=== PATIENT | female | born 1940 | race Hispanic/Latino ===

== ENCOUNTER 2018-08-27 07:36 | Emergency (ER) | payer OTHER ==
[2018-08-27 07:36] VITALS: BMI 30.2
[2018-08-27 07:51] VITALS: O2SAT 99
--- NOTE | 2018-08-27 08:34 | ED PDOC ---
Arrival/HPI - History of Present Illness Narrative History of Present Illness (Text): 08/27/18 08:20 Pt is a 78 y F with pmhx of HTN, GERD, and glaucoma who presents for a fall sustained this AM due to uneven pavement. Pt reports that she was walking to [employer] when she tripped over some uneven pavement that she did not see. She states that she fell forward and hit her R hand and the R side of her face against the concrete, and states that there was no glass or other sharp objects on the floor where she fell. She denies feeling lightheaded or dizzy before the event and denies any LOC after the fall. She is currently complaining of R hand, and R shoulder pain and is also stating that she is having a headache. She states that the pain all rates about a 7/10 without radiation. She denies any numbness, tingling or weakness or being on any anti-coagulants. Pmhx: HTN, glaucoma, GERD Pshx: Cholecystectomy Meds: Norvasc, lopressor, cozaar, nexium All: Morphine - decreased HR Social: Denies any tobacco hx, etoh or illicit drug use Fam Hx: Mom- DM Time/Duration: 1 hour Symptom Onset: Sudden <Sung Lan - Last Filed: 08/27/18 10:59> <Brody Coker DO - Last Filed: 08/27/18 18:11> - General Chief Complaint: Trauma Time Seen by Provider: 08/27/18 07:55 Past Medical History - Provider Review Nursing Documentation Reviewed: Yes - Infectious Disease Hx of Infectious Diseases: None - Cardiac Hx Hypertension: Yes - Psychiatric Hx Depression: No Hx Emotional Abuse: No Hx Physical Abuse: No Hx Substance Use: No - Surgical History Hx Cholecystectomy: Yes - Anesthesia Hx Anesthesia: Yes Hx Anesthesia Reactions: No Hx Malignant Hyperthermia: No - Suicidal Assessment Feels Threatened In Home Enviroment: No <Sung Lan - Last Filed: 08/27/18 10:59> Family/Social History - Physician Review Nursing Documentation Reviewed: Yes Family/Social History: Diabetes Smoking Status: Never Smoked Hx Alcohol Use: No Hx Substance Use: No Hx Substance Use Treatment: No <Sung Lan - Last Filed: 08/27/18 10:59> Allergies/Home Meds <Sung Lan - Last Filed: 08/27/18 10:59> <Ummyasestrella DOBrody - Last Filed: 08/27/18 18:11> Allergies/Adverse Reactions: Allergies morphine Adverse Reaction (Verified 08/27/18 07:59) RASH Home Medications: Home Meds Medication Instructions Recorded Confirmed Amlodipine Besylate [Norvasc] 5 mg PO DAILY 03/06/14 08/27/18 Esomeprazole Magnesium [Nexium] 40 mg PO DAILY 03/06/14 08/27/18 Losartan [Cozaar] 50 mg PO DAILY 03/06/14 08/27/18 Metoprolol Tartrate [Lopressor] 50 mg PO DAILY 03/06/14 08/27/18 Review of Systems - Physician Review All systems were reviewed & negative as marked: Yes - Review of Systems Respiratory: absent: SOB, Cough, Wheezing Cardiovascular: absent: Chest Pain, Palpitations, Edema Musculoskeletal: Joint Swelling (R hand and R eyelid ) Skin: Laceration (R hand) <Sung Lan - Last Filed: 08/27/18 10:59> Physical Exam Vital Signs Reviewed: Yes Vital Signs Temp Pulse Resp BP Pulse Ox 08/27/18 07:39 98.2 F 78 18 164/76 H 99 Temperature: Afebrile Blood Pressure: Hypertensive (likely 2/2 pain) Pulse: Regular Respiratory Rate: Normal Appearance: Positive for: Well-Appearing, Non-Toxic, Uncomfortable Pain Distress: Mild Mental Status: Positive for: Alert and Oriented X 3 - Systems Exam Head: Present: Normocephalic, Swelling (R eye orbit and eyelid), Ecchymosis (R eye orbit and eyelid) Pupils: Present: PERRL Extroacular Muscles: Present: EOMI Mouth: Present: Moist Mucous Membranes Respiratory/Chest: Present: Clear to Auscultation, Good Air Exchange. No: Respiratory Distress, Accessory Muscle Use, Wheezes Cardiovascular: Present: Regular Rate and Rhythm, Normal S1, S2. No: Murmurs, Rub, Gallop Abdomen: Present: Normal Bowel Sounds. No: Tenderness, Distention, Peritoneal Signs, Rebound, Guarding Upper Extremity: Present: Swelling (of the MCP joint of R hand in digits 3,4 and 5. Abrasions present on the dorsal aspect of the MCP joints of the 3, 4 & 5 digits. Normal cap refill, with normal sensation, ROM limited due to pain and swelling), Neurovascularly Intact Lower Extremity: Present: Normal Inspection, Neurovascularly Intact. No: Edema, CALF TENDERNESS Neurological: Present: GCS=15, CN II-XII Intact, Speech Normal, Motor Func Grossly Intact, Normal Sensory Function Skin: Present: Warm, Dry, Normal Color. No: Rashes Psychiatric: Present: Alert, Oriented x 3, Normal Insight, Normal Concentration <uSng Lan - Last Filed: 08/27/18 10:59> Vital Signs Temp Pulse Resp BP Pulse Ox 08/27/18 07:39 98.2 F 78 18 164/76 H 99 <Brody Coker DO - Last Filed: 08/27/18 18:11> Medical Decision Making ED Course and Treatment: 08/27/18 08:49 Pt is a 78 yo F with pmhx detailed above who presents s/p fall. She states she hit her head and R hand on the ground upon initial impact and there was no preceeding syncope or LOC after fall. - XR R hand - XR R shoulder - CT head - CT orbit / facials 08/27/18 09:54 Progress Note: CT head and orbit/ facial report read and acknowledged. Informed the pt that she has inferior orbital bone fracture and has a 5th digit fracture near MCP joint. Informed pt that we will be providing the names for [facility] and hand surgeons for follow up after d/c. We will be splinting the hand before d/c, and will be prescribing antibiotics PO and affrin nasal spray. - Augmentin - RAD Interpretation Radiology Orders: 08/27/18 08:18 HEAD W/O CONTRAST [CT] Stat ORBITS/ FACIALS W/O CONTRAST [CT] Stat HAND RIGHT 3 VIEWS [RAD] Stat SHOULDER RIGHT [RAD] Stat <Sung Lan - Last Filed: 08/27/18 10:59> ED Course and Treatment: Impression: Patient Seen with Resident: In agreement with resident note which contains more details about the patient. Patient seen and evaluated with resident. Came up with plan and treatment together. Pt, whose past medical history includes hypertension, GERD, and glaucoma, presented s/p fall while walking on uneven pacement. Pt tripped and hit her right hand and right face on the concrete. Plan: -- CT Head w/o contrast -- CT Orbits/Facials w/o contrast -- XR Right Shoulder -- XR Right Hand -- Reassess and disposition 08/27/18 09:53 PROCEDURE: SPLINT APPLICATION Applied by Motor Assembler, supervised by Emergency Provider. Location: Right 5th digit Procedure: The area of the splint was appropriately positioned. A ulnar gutter splint was applied. Post-procedure: Good position. Neurovascular status remains intact. Patient tolerated the procedure well with no immediate complications 08/27/18 10:35 Discussed entire plan in detail with patient's daughter, present at bedside, who is aware and verbalizes understanding. - RAD Interpretation Radiology Orders: 08/27/18 08:18 HEAD W/O CONTRAST [CT] Stat ORBITS/ FACIALS W/O CONTRAST [CT] Stat HAND RIGHT 3 VIEWS [RAD] Stat SHOULDER RIGHT [RAD] Stat Developer [employer]: ED Physician, Radiologist <Brody Coker DO - Last Filed: 08/27/18 18:11> - PA / [employer]ER / Resident Statement SAMANTHA has reviewed & agrees with the documentation as recorded. SAMANTHA has examined the patient and agrees with the treatment plan. - Scribe Statement The provider has reviewed the documentation as recorded by the Dino Jama Provider Scribe Attestation: All medical record entries made by the Kimberlyibshannon were at my direction and personally dictated by me. I have reviewed the chart and agree that the record accurately reflects my personal performance of the history, physical exam, medical decision making, and the department course for this patient. I have also personally directed, reviewed, and agree with the discharge instructions and disposition. <Brody Coker DO - Last Filed: 08/27/18 18:11> Disposition/Present on Arrival - Present on Arrival Any Indicators Present on Arrival: No History of DVT/PE: No History of Uncontrolled Diabetes: No Urinary Catheter: No History of Decub. Ulcer: No History Surgical Site Infection Following: None - Disposition Have Diagnosis and Disposition been Completed?: Yes Disposition Time: 10:45 <Sung Lan - Last Filed: 08/27/18 10:59> - Disposition Disposition Time: 09:30 <Brody Coker DO - Last Filed: 08/27/18 18:11> - Disposition Diagnosis: Orbital floor fracture, Metacarpal bone fracture Disposition: HOME/ ROUTINE Condition: GOOD Discharge Instructions (ExitCare): Cast Care, Hand Fracture (DC), Skull and Facial Fractures (DC) Additional Instructions: GENARO MAS, thank you for letting us take care of you today. The emergency medical care you received today was directed at your acute symptoms. If you were prescribed any medication, please fill it and take as directed. It may take several days for your symptoms to resolve. Return to the Emergency Department if your symptoms worsen, do not improve, or if you have any other problems. Please contact your doctor or call one of the physicians/clinics you have been referred to that are listed on the Patient Visit Information form that is included in your discharge packet. Bring any paperwork you were given at discharge with you along with any medications you are taking to your follow up visit. Our treatment cannot replace ongoing medical care by a primary care provider outside of the emergency department. Thank you for allowing the [facility] team to be part of your care today. FOR YOUR HAND: PLEASE KEEP THE SPLINT ON AT ALL TIMES AND KEEP CLEAN AND DRY. Follow up with Dr. Saucedo, our hand doctor, in 2-3 days for re-evaluation and further management. FOR YOUR FACIAL FRACTURE: PLEASE FOLLOW UP WITH 1 OF THESE PLACES (WHATEVER IS CONVENIENT TO YOU): Dr. Kaila Mcdaniel -OR- [facility] [address] [place] [address] phone: [phone] Prescriptions: Amoxicillin/Clavulanate [Augmentin 875 MG-125 MG] 1 tab PO BID #20 tab Oxymetazoline 0.05% [Oxymetazoline HCl 30 Ml] 1 ml NS BID #1 bottle Referrals: Chepe Saucedo III, MD [Medical Doctor] - Follow up with primary Kaila Mcdaniel MD [Staff Provider] - Follow up with primary Forms: [employer] (Armenian)
--- NOTE | 2018-08-27 09:19 | CT ---
Date of service: 08/27/2018 PROCEDURE: CT HEAD WITHOUT CONTRAST. HISTORY: s/p fall - r/o ICH and fx COMPARISON: August 27, 2018. Maxillofacial CT reported separately TECHNIQUE: Axial computed tomography images were obtained through the head/brain without intravenous contrast. Supplemental Coronal and Sagittal projectections created and reviewed. Radiation dose: Total exam DLP = 821.20 mGy-cm. This CT exam was performed using one or more of the following dose reduction techniques: Automated exposure control, adjustment of the mA and/or kV according to patient size, and/or use of iterative reconstruction technique. FINDINGS: HEMORRHAGE: No intracranial hemorrhage. BRAIN: No mass effect or edema. Cortical atrophy and chronic microvascular ischemic change. VENTRICLES: Unremarkable. No hydrocephalus. CALVARIUM: Unremarkable. PARANASAL SINUSES: Blood within the right maxillary sinus. Incompletely visualized facial trauma, periorbital and supraorbital hematoma identified. MASTOID AIR CELLS: Unremarkable as visualized. No inflammatory changes. OTHER FINDINGS: None. IMPRESSION: No acute intracranial abnormalities. No significant findings to account for the clinical presentation. Right periorbital/facial injury with blood within the right maxillary sinus.
--- NOTE | 2018-08-27 09:26 | CT ---
Date of service: 08/27/2018 PROCEDURE: CT MAXILLOFACIAL BONES WITHOUT CONTRAST HISTORY: s/p fall - r/o fx COMPARISON: August 27, 2018. CT head reported separately TECHNIQUE: Contiguous axial CT images of the maxillofacial bones were obtained. Coronal and sagittal reformats were generated. Radiation dose: Total exam DLP = 721.14 mGy-cm. This CT exam was performed using one or more of the following dose reduction techniques: Automated exposure control, adjustment of the mA and/or kV according to patient size, and/or use of iterative reconstruction technique. FINDINGS: NASAL BONES: Unremarkable. ORBITS: Depressed fracture affecting the floor of the orbit. No evidence of entrapment of the adjacent inferior rectus muscle. Fracture extends to the medial and posterior wall of the orbit PARANASAL SINUSES/ MASTOIDS: Blood fluid level identified in the right maxillary sinus consistent with recent trauma. MAXILLA: Unremarkable. MANDIBLE/ TEMPOROMANDIBULAR JOINTS: Unremarkable. SKULL BASE: Unremarkable. TEMPORAL BONES: Middle ears and mastoid grossly unremarkable. OTHER FINDINGS: Focal asymmetry, soft tissue swelling right nasopharyngeal region. Adjacent pterygoid plate and pterygoid musculature are uninvolved. IMPRESSION: 1. Acute fractures involving the medial and inferior wall of the right orbit. No evidence of entrapment of the right inferior rectus muscle. 2. Blood fluid level identified in the right maxillary sinus. 3. Considerable right periorbital and supraorbital soft tissue swelling, contusion identified. No abnormalities with respect to the globe.
[2018-08-27 10:16] VITALS: RESP 19
--- NOTE | 2018-08-27 10:21 | RAD ---
Date of service: 08/27/2018 PROCEDURE: Radiographs of the Right Shoulder HISTORY: s/p fall - r/o fx COMPARISON: No prior. FINDINGS: BONES: No acute fractures. JOINTS: High riding humeral head relative to the glenoid consistent with rotator cuff disease. Acromioclavicular degenerative changes-moderate. SOFT TISSUES: Normal. OTHER FINDINGS: None. IMPRESSION: No acute findings related to/accounting for the clinical presentation. Degenerative changes described above.
--- NOTE | 2018-08-27 10:22 | RAD ---
PROCEDURE: Right Hand Radiographs. HISTORY: s/p fall - r/o fx COMPARISON: None. FINDINGS: BONES: Distal 5th metacarpal fracture. The finding is marked on the study for review. 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 SOFT TISSUES: Soft tissue swelling attests to the acuity of the fracture. OTHER FINDINGS: None. IMPRESSION: Acute distal 5th metacarpal fracture.
[2018-08-27 11:20] VITALS: BP 129/71; PULSE 83; TEMP 98.3
== END 2018-08-27 11:18 | disposition home or self-care (01) ==
LOC: ED 07:36
DX: S02.31XA Fracture of orbital floor, right side, initial encounter for closed fracture (principal); S62.396A Other fracture of fifth metacarpal bone, right hand, initial encounter for closed fracture; W01.0XXA Fall on same level from slipping, tripping and stumbling without subsequent striking against object, initial encounter; Y92.480 Sidewalk as the place of occurrence of the external cause